=== PATIENT | female | born 1995 | race African-American/Black ===

== ENCOUNTER 2017-02-06 00:13 | Emergency (ER) | payer SELFPAY ==
[2017-02-06 00:47] LABS: APPEARANCE HAZY (CLEAR); BILIRUBIN NEGATIVE (NEGATIVE); COLOR YELLOW (YELLOW); GLUCOSE NEGATIVE (NEGATIVE); KETONE NEGATIVE (NEGATIVE); NITRITE NEGATIVE (NEGATIVE); PROTEIN NEGATIVE (NEGATIVE); SPECIFIC GRAVITY 1.015 (1.005-1.020); UROBILINOGEN NORMAL (NORMAL)
[2017-02-06 01:01] LABS: BACTERIA MANY /hpf (NONE SEEN); HYALINE CAST RARE /lpf (NONE SEEN); WHITE CELLS - URINE >50 /hpf (0-5)
[2017-02-06 01:02] LABS: AMORPHOUS SEDIMENT <1+ /lpf (NONE SEEN)
[2017-02-06 02:26] LABS: APPEARANCE CLOUDY (CLEAR); COLOR YELLOW (YELLOW)
[2017-02-06 02:27] LABS: BILIRUBIN NEGATIVE (NEGATIVE); GLUCOSE NEGATIVE (NEGATIVE); KETONE NEGATIVE (NEGATIVE); NITRITE NEGATIVE (NEGATIVE); PROTEIN NEGATIVE (NEGATIVE); UROBILINOGEN NORMAL (NORMAL)
[2017-02-06 02:34] LABS: BACTERIA MANY /hpf (NONE SEEN); WHITE CELLS - URINE >50 /hpf (0-5)
[2017-02-06 02:35] LABS: HYALINE CAST RARE /lpf (NONE SEEN)
== END 2017-02-06 02:50 | disposition home or self-care (01) ==
LOC: D.ER 00:13
PROVIDERS: Emergency Medicine; Physician Assistant Medical
DX: R31.9 Hematuria, unspecified (principal); N39.0 Urinary tract infection, site not specified; N76.0 Acute vaginitis